=== PATIENT | male | born 1960 | race Two or more races ===

== ENCOUNTER 2020-12-20 01:53 | Emergency (ER) | payer OTHER ==
[2020-12-20] MEDS ORDERED: Sodium Chloride 0.9% 2.5 ML Syringe FLUSH PRN (02:48)
[2020-12-20] MEDS ORDERED: Sodium Chloride 0.9% 10 ML Syringe FLUSH PRN (02:48)
[2020-12-20 03:06] LABS: BLOOD UREA NITROGEN,BUN 14 mg/dL (7.0-18.0); CARBON DIOXIDE,CO2 29.3 mmol/L (21.0-32.0); CHLORIDE,CL 104 mmol/L (98-107); GLUCOSE RANDOM 107 mg/dL (74-106); POTASSIUM,K 3.7 mmol/L (3.5-5.1); SODIUM,NA 140 mmol/L (136-148)
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
== END 2020-12-20 03:30 | disposition home or self-care (01) ==
LOC: MW.ED 01:53
DX: T59.91XA Toxic effect of unspecified gases, fumes and vapors, accidental (unintentional), initial encounter (principal)
CPT/HCPCS: 36415; 71046; 71046-26; 80053; 84484; 85025; 99284-25